=== PATIENT | male | born 1970 | race Caucasian/White ===

== ENCOUNTER 2017-03-12 14:58 | Emergency (ER) | payer OTHER, BC ==
[2017-03-12] MEDS ORDERED: DIPHTH,PERTUSS(ACELL),TET VAC 0.5 ML VIAL IM ONE ×2 (15:34→16:28)
--- NOTE | 2017-03-12 15:36 | ERNOTE ---
Medical Problem HPI - Narrative Date of Service: 03/12/17 - General Chief Complaint: Laceration Time Seen by Provider: 03/12/17 15:32 Source: patient - Immun/Allergies/Home Medications Immunizations: IMMUNIZATION HX Immunizations Up to Date No History of Influenza Vaccine No Hx Pneumococcal Vaccination No Allergies/Adverse Reactions: Allergies No Known Drug Allergies Allergy (Verified 03/12/17 15:27) Home Medications: HOME MEDICATIONS NK [No Home Medication] 07/19/15 [Last Taken Unknown] - History of Present History Narrative: CUT LEFT INDEX FINGER AGAINST A STEEL BELT AT WORK [employer]. NO OTHER INJURY. HE IS RIGHT HANDED. Review of Systems - Review of Systems Constitutional: Present: See HPI Skin: Present: See HPI All Other Systems: All systems neg except as marked - Patient's Past Medical History Patient History - Medical: Kidney stone Patient History - Cardiac/Respiratory: No pertinent hx Patient History - Cancer: No Hx of Cancer Patient History - Other: None - Social History Smoking Status: Former smoker - Immunizations Immunizations Up to Date: No Hx Pneumococcal Vaccination: No History of Influenza Vaccine: No Physical Exam - Physical Exam General Appearance: Present: wd/wn, alert, no apparent distress Extremity Exam: Present: normal except - - 3.5 cm beveled laceration to radial side of proximal left index finger just distal to mp joint and going diagonally across dorsum of the proximal phalanges but not invoving the joint. There is no signof bony or tendon involvement with good rom and sensation and refill to the whole of the index finger. the wound is clean with no foreign body but he has chronic oil and grease exposure and coloratin of his hands from his work. , joint swelling Neurological Exam: Present: alert, oriented Skin Exam: Present: other - see above. ED Progress - Vital Signs Vital Signs: Vital Signs 03/12/17 15:18 Temperature 36.6 C Pulse Rate 80 Respiratory 16 Rate Blood Pressure 141/84 O2 Sat by Pulse 97 Oximetry - Progress/Reassessment Chief Complaint: Laceration Procedures Left Finger 1st Digit Anesthesia: 1% Lidocaine I & D Prep: other - STERILE SALINE Wound's Depth/Shape: into subcutaneous, irregular - SL "V" SHAPED AT THE DISTAL END. , flap Wound Explored: no foreign body Wound Intervention: irrigated w/saline Distal NVT: neuro/vasc intact, no tendon injury Wound Repaired With: sutures Suture Size/Type: 4-0, nylon Number of Sutures: 5 Layer Closure: Simple Wound Dressing: sterile dressing applied Complications: Pt nik procedure well Departure - Departure Clinical Impression: Laceration Disposition: Home Follow Up Needed Condition: Good Instructions: Laceration Care, Adult, [id number] Additional Instructions: your sutures need to come out in 10 days. Recheck sooner if there is any sign of infection or if you develop problems with movement of your finger. Cleanse the wound with soap and water or 1/2 strength peroxide and water, pat it dry and apply triple antibiotic ointment and re-bandage the wound, 2-3 times a day or if it gets dirty . try to keep it protected from contamination at work.
[2017-03-12 16:55] VITALS: BP 140/82
== END 2017-03-12 16:57 | disposition home or self-care (01) ==
LOC: ER 14:58
PROC: 0JQK0ZZ Repair Left Hand Subcutaneous Tissue and Fascia, Open Approach (ICD-10-PCS; principal; 2017-03-12)
DX: S61.211A Laceration without foreign body of left index finger without damage to nail, initial encounter (principal); W45.8XXA Other foreign body or object entering through skin, initial encounter; W22.8XXA Striking against or struck by other objects, initial encounter; Y93.9 Activity, unspecified; Y92.63 Factory as the place of occurrence of the external cause; Y99.0 Civilian activity done for income or pay; Z23 Encounter for immunization